=== PATIENT | female | born 1985 | race Two or more races ===

== ENCOUNTER → 2019-10-14 | Outpatient (CLI) | payer OTHER | END | disposition home or self-care (01) | LOC: PRENATAL 14:18 | DX: O99.89 Other specified diseases and conditions complicating pregnancy, childbirth and the puerperium (principal); O36.80X1 Pregnancy with inconclusive fetal viability, fetus 1; O34.41 Maternal care for other abnormalities of cervix, first trimester; Z36.89 Encounter for other specified antenatal screening ==

== ENCOUNTER → 2019-12-01 | Outpatient (CLI) | payer OTHER | END | disposition home or self-care (01) | LOC: PRENATAL 13:00 | PROVIDERS: ATTEND Obstetrics & Gynecology | DX: O99.89 Other specified diseases and conditions complicating pregnancy, childbirth and the puerperium (principal); O34.42 Maternal care for other abnormalities of cervix, second trimester; O09.512 Supervision of elderly primigravida, second trimester; O35.0XX1 Maternal care for (suspected) central nervous system malformation in fetus, fetus 1; O26.852 Spotting complicating pregnancy, second trimester ==

== ENCOUNTER 2020-01-14 23:38 | Emergency (ER) | payer OTHER ==
[~2020-01-14] VITALS: Ht 160 cm; Wt 62.6 kg
[2020-01-14] MEDS ORDERED: MACROBID 100 M100 MG (23:52)
[2020-01-15] MEDS ORDERED: CLEOCIN HCL300 MG PO (02:02)
[2020-01-15] MEDS ORDERED: PYRIDIUM DS200 MG PO ×2 (02:03)
== END 2020-01-15 02:12 | disposition home or self-care (01) ==
LOC: ER 23:38
DX: N39.0 Urinary tract infection, site not specified (principal)

== ENCOUNTER 2020-01-20 04:36 | Inpatient (IN) | payer OTHER ==
[~2020-01-20] VITALS: Ht 160 cm; Wt 64.4 kg
[~2020-01-20 04:36] MED LIST: CLEOCIN HCL300 MG PO; MACROBID 100 M100 MG; PYRIDIUM DS200 MG PO
[2020-01-20] MEDS ORDERED: PYRIDIUM200 MG PO (11:16)
[2020-01-20] MEDS ORDERED: PRENATAL TABLE1 EAC1 PO (11:17)
[2020-01-20] MEDS ORDERED: LEVOTHYROXINE25 MCG PO (11:17)
[2020-01-23] MEDS ORDERED: MACROBID 100 M100 MG PO (07:46)
[2020-01-23] MEDS ORDERED: NIFEDIPINE ER30 MG PO (07:46)
[2020-01-23] MEDS ORDERED: TAMS0.4C PO (07:46)
== END 2020-01-23 09:52 | disposition home or self-care (01) | DRG 832 ==
LOC: LDR 04:36 → OB/GYN 01-21 13:36 → LDR 01-21 16:14
PROVIDERS: ADMIT Obstetrics & Gynecology; ATTEND Obstetrics & Gynecology
PROC: BT4JZZZ Ultrasonography of Kidneys and Bladder (ICD-10-PCS; principal; 2020-01-20)
PROC: BY4CZZZ Ultrasonography of Second Trimester, Single Fetus (ICD-10-PCS; 2020-01-20)
PROC: 4A1HXCZ Monitoring of Products of Conception, Cardiac Rate, External Approach (ICD-10-PCS; 2020-01-20)
DX: O23.02 Infections of kidney in pregnancy, second trimester (principal); N13.6 Pyonephrosis; B96.29 Other Escherichia coli [E. coli] as the cause of diseases classified elsewhere; O26.842 Uterine size-date discrepancy, second trimester; Z3A.27 27 weeks gestation of pregnancy

== ENCOUNTER 2020-02-09 14:32 | Outpatient (CLI) | payer OTHER ==
[~2020-02-09 14:32] MED LIST changes: +LEVOTHYROXINE25 MCG PO; +MACROBID 100 M100 MG PO; +NIFEDIPINE ER30 MG PO; +PRENATAL TABLE1 EAC1 PO; +PYRIDIUM200 MG PO; +TAMS0.4C PO
== END 2020-02-09 14:55 | disposition home or self-care (01) ==
LOC: SONOGRAMA 14:32
PROVIDERS: ATTEND Obstetrics & Gynecology
DX: Z34.83 Encounter for supervision of other normal pregnancy, third trimester (principal)

== ENCOUNTER 2020-03-29 14:00 | Inpatient (IN) | payer OTHER ==
[~2020-03-29] VITALS: Ht 160 cm; Wt 2.7 kg
[2020-04-16] MEDS ORDERED: PRENATAL CAPLE1 EAC1 PO (08:44)
[2020-04-16] MEDS ORDERED: VALTREX1000 MG PO (08:45)
[2020-04-16] MEDS ORDERED: SYNTHROID50 MCG PO (08:46)
== END 2020-04-19 14:49 | disposition home or self-care (01) | DRG 788 ==
LOC: O/R 04-16 08:39 → LDR 04-16 08:39 → O/R 04-16 14:57 → SURG-SUITE 04-16 15:42 → LDR 04-19 14:00 → SURG-SUITE 04-19 14:49
PROVIDERS: ADMIT Obstetrics & Gynecology; ATTEND Obstetrics & Gynecology
PROC: 4A1HXFZ Monitoring of Products of Conception, Cardiac Rhythm, External Approach (ICD-10-PCS; 2020-04-16)
PROC: 10D00Z1 Extraction of Products of Conception, Low, Open Approach (ICD-10-PCS; principal; 2020-04-16 13:30)
DX: O76 Abnormality in fetal heart rate and rhythm complicating labor and delivery (principal); O36.8330 Maternal care for abnormalities of the fetal heart rate or rhythm, third trimester, not applicable or unspecified; O77.0 Labor and delivery complicated by meconium in amniotic fluid; O42.02 Full-term premature rupture of membranes, onset of labor within 24 hours of rupture; Z3A.39 39 weeks gestation of pregnancy; Z37.0 Single live birth; Z20.828 Contact with and (suspected) exposure to other viral communicable diseases